=== PATIENT | female | born 1980 | race Caucasian/White ===

== ENCOUNTER → 2017-10-04 | Outpatient (REF) | payer OTHER | LOC: M SFHCLERA 10:08 | DX: J02.9 Acute pharyngitis, unspecified (principal) ==

== ENCOUNTER → 2017-10-17 | Outpatient (REF) | payer OTHER ==
[2017-10-17 23:20] LABS: CHLAMYDIA DNA AMPLIFICATION NEGATIVE (NEGATIVE); GC DNA AMPLIFICATION NEGATIVE (NEGATIVE)
== END ==
LOC: M SFHCLERA 16:15
DX: R30.0 Dysuria (principal)

== ENCOUNTER → 2018-10-23 | Outpatient (REF) | payer OTHER | LOC: M SFHCLERA 11:24 | PROVIDERS: ATTEND Nurse Practitioner Family | DX: J02.9 Acute pharyngitis, unspecified (principal) ==

== ENCOUNTER 2025-01-05 11:47 | Outpatient (CLI) | payer BC, OTHER ==
[~2025-01-05] VITALS: Ht 162.6 cm; Wt 104.5 kg
[~2025-01-05 11:47] MED LIST: ALBUTEROL SULFATE 2.5MG/0.5ML INH CONCENTRATE NEB SOLN INH PRN; EPINEPHrine INJ 1 MG/ML 1ML AMP IM PRN; diphenhydrAMINE 50MG/ML VIAL IV PRN; methylPREDNISolone 125MG 2ML VIAL IV PRN
[2025-01-05 12:30] VITALS: BP 127/77; O2SAT 98
[2025-01-05] MEDS: FERRIC CARBOXYMALTOSE 750 MG (VIAL MATE) IN 100ML NS IV ONE (12:44)
[2025-01-05 13:23] VITALS: BP 133/81; O2SAT 100
== END 2025-01-05 13:25 | disposition home or self-care (01) ==
LOC: M INFU 11:47
PROVIDERS: ATTEND Internal Medicine
DX: D50.9 Iron deficiency anemia, unspecified (principal); Z91.89 Other specified personal risk factors, not elsewhere classified
CPT/HCPCS: 96365; J1439

== ENCOUNTER 2025-01-12 12:00 | Outpatient (CLI) | payer BC, OTHER ==
[~2025-01-12] VITALS: Ht 162.6 cm; Wt 104.0 kg
[2025-01-12 12:00] VITALS: BP 112/72; O2SAT 98
[2025-01-12] MEDS: FERRIC CARBOXYMALTOSE 750 MG (VIAL MATE) IN 100ML NS IV ONE (12:19)
[2025-01-12 12:55] VITALS: BP 119/83; O2SAT 98
== END 2025-01-12 12:55 | disposition home or self-care (01) ==
LOC: M INFU 12:00
PROVIDERS: ATTEND Internal Medicine
DX: D50.9 Iron deficiency anemia, unspecified (principal)
CPT/HCPCS: 96365; J1439